=== PATIENT | female | born 1965 | race Asian ===

== ENCOUNTER → 2019-02-20 | Outpatient (CLI) | payer BC, OTHER | LOC: MC.RAD 16:19 | DX: Z12.31 Encounter for screening mammogram for malignant neoplasm of breast (principal); Z98.890 Other specified postprocedural states ==

== ENCOUNTER → 2019-05-31 | Outpatient (CLI) | payer BC, OTHER | LOC: ZCOL.LAB 19:01 | DX: H92.12 Otorrhea, left ear (principal) ==

== ENCOUNTER → 2019-11-23 | Outpatient (CLI) | payer BC, OTHER | LOC: COL.RAD | DX: R74.8 Abnormal levels of other serum enzymes (principal); R79.89 Other specified abnormal findings of blood chemistry | CPT/HCPCS: J1100; J2250; J2704; J3010 ==

== ENCOUNTER → 2020-07-04 | Outpatient (CLI) | payer BC, OTHER | LOC: MC.RAD 09:25 | DX: Z12.31 Encounter for screening mammogram for malignant neoplasm of breast (principal) ==